=== PATIENT | female | born 1980 | race Caucasian/White ===

== ENCOUNTER 2019-09-16 10:10 | Inpatient (IN) | payer MEDICARE, MEDICAID ==
[~2019-09-16] VITALS: Ht 170.2 cm; Wt 65.3 kg
[2019-09-16] MEDS ORDERED: LORazepam 2 MG/ML VIAL ONE (10:29)
[2019-09-16] MEDS ORDERED: DiphenhydrAMINE HCL 50 MG/ML VIAL ONE (10:30)
[2019-09-16] MEDS ORDERED: HALOPERIDOL LACTATE 5 MG/ML VIAL ONE (10:30)
[2019-09-16] MEDS ORDERED: DiphenhydrAMINE HCL 50 MG/ML VIAL IM ONE (10:30)
[2019-09-16] MEDS ORDERED: LORazepam 2 MG/ML VIAL IM ONE (11:15)
[2019-09-16] MEDS ORDERED: HALOPERIDOL LACTATE 5 MG/ML VIAL IM ONE (11:15)
[2019-09-16 12:17] LABS: BASOPHILS % (AUTO) 0.4 % (0.0-2.0); EOSINOPHILS % (AUTO) 0.7 % (1.0-6.0); HEMATOCRIT 34.1 % (36-46); HEMOGLOBIN 11.6 g/dL (12.0-16.0); LYMPHOCYTES # (AUTO) 1.5 K/uL (1.0-4.8); LYMPHOCYTES % (AUTO) 26.2 % (22.0-44.0); MEAN CORPUSCULAR HEMOGLOBIN 30.9 pg (26.0-34.0); MEAN CORPUSCULAR VOLUME 91 fL (80-100); MONOCYTES # (AUTO) 0.3 K/uL (0.1-1.0); MONOCYTES % (AUTO) 5.6 % (2.0-9.0); NEUTROPHILS % (AUTO) 67.1 % (40.0-70.0); PLATELET COUNT (AUTO) 324 K/uL (150-450); RED BLOOD CELL COUNT(AUTO) 3.76 MIL/uL (4.00-5.20); RED CELL DISTRIBUTION WIDTH 13.8 % (11.5-14.5)
[2019-09-16 12:26] LABS: ANION GAP 4 mmol/L (8-16); CALCIUM, TOTAL 8.2 mg/dL (8.8-10.5); CARBON DIOXIDE 25 mmol/L (22-29); CHLORIDE 108 mmol/L (98-107); CREATININE 0.67 mg/dL (0.60-1.30); GLOMERULAR FILTR. RATE CALC > 60 mL/min (>60); GLUCOSE,RANDOM 81 mg/dL (70-110); SODIUM SERUM 137 mmol/L (136-145); UREA NITROGEN, BLOOD 10 mg/dL (7-18)
[2019-09-16 12:39] LABS: ALANINE AMINOTRANSFERASE 35 U/L (12-78); ALBUMIN 3.2 g/dL (3.4-5.0); ALKALINE PHOSPHATASE 52 U/L (46-116); ASPARTATE AMINOTRANSFERASE 30 U/L (15-37); BILIRUBIN,TOTAL 0.4 mg/dL (0.1-1.0); HCG,QUANTITATIVE < 1 mIU/mL (0-6); TOTAL PROTEIN, SERUM 6.6 g/dL (6.4-8.2)
[2019-09-16] MEDS ORDERED: HALOPERIDOL 5 MG TABLET PO PRN (14:15)
[2019-09-16] MEDS ORDERED: ZOLPIDEM TARTRATE 10 MG TABLET PO PRN (14:15)
[2019-09-16 18:12] VITALS: BP 111/64
[2019-09-16] MEDS ORDERED: POTASSIUM CHLORIDE 20 MEQ ER TABLET PO ONE (19:30)
[2019-09-17 04:43] VITALS: BP 108/60
[2019-09-17] MEDS ORDERED: NICOTINE 14 MG/24 HOUR PATCH TD PRN (08:00)
[2019-09-17] MEDS ORDERED: DOCUSATE SODIUM 100 MG CAPSULE PO PRN (08:00)
[2019-09-17] MEDS ORDERED: PETROLATUM,WHITE 28 GM JELLY TP PRN (08:00)
[2019-09-17] MEDS ORDERED: MAGNESIUM HYDROXIDE SUSPENSION 30 ML UDCUP PO PRN (08:00)
[2019-09-17] MEDS ORDERED: MAG HYDROX/AL HYDROX/SIMETH ES 30 ML SUSPENSION UDCUP PO PRN (08:00)
[2019-09-17] MEDS ORDERED: IBUPROFEN 400 MG TABLET PO PRN (08:00)
[2019-09-17] MEDS ORDERED: ALBUTEROL SULFATE HFA 90 MCG/PUFF 8 GM INHALER IH PRN (08:00)
[2019-09-17] MEDS ORDERED: ONDANSETRON HCL 4 MG TABLET PO PRN (08:00)
[2019-09-17] MEDS ORDERED: CloNIDine HCL 0.1 MG TABLET PO PRN (08:00)
[2019-09-17] MEDS ORDERED: ACETAMINOPHEN 325 MG TABLET PO PRN (08:00)
[2019-09-17] MEDS ORDERED: LOPERAMIDE HCL 2 MG CAPSULE PO PRN (08:00)
[2019-09-17] MEDS ORDERED: GuaiFENesin/D-METHORPHAN [SUGAR-FREE] 200-20MG/10 ML SYRUP UDCUP PO PRN (08:00)
[2019-09-17] MEDS: BACITRACIN 28.4 GM OINTMENT TP SCH ×2 (08:03→16:48)
[2019-09-17] MEDS: OLANZapine 5 MG RAPDIS TABLET PO SCH ×2 (11:38→16:48)
[2019-09-17 16:08] VITALS: BP 110/67
[2019-09-18 00:28] VITALS: BP 107/62
[2019-09-18] MEDS: OLANZapine 5 MG RAPDIS TABLET PO SCH ×2 (08:39→16:56)
[2019-09-18] MEDS: BACITRACIN 28.4 GM OINTMENT TP SCH ×2 (08:39→16:56)
[2019-09-18] MEDS: LORazepam 2 MG TABLET PO PRN (09:52)
[2019-09-18 16:08] VITALS: BP 119/85
[2019-09-19 00:46] VITALS: BP 116/81
[2019-09-19 08:24] VITALS: BP 118/76
[2019-09-19] MEDS: OLANZapine 5 MG RAPDIS TABLET PO SCH ×2 (08:35→16:29)
[2019-09-19] MEDS: BACITRACIN 28.4 GM OINTMENT TP SCH ×2 (08:35→16:29)
[2019-09-19] MEDS: LORazepam 2 MG TABLET PO PRN (08:35)
[2019-09-19 16:19] VITALS: BP 121/78
[2019-09-20 00:43] VITALS: BP 120/76
[2019-09-20] MEDS: OLANZapine 5 MG RAPDIS TABLET PO SCH ×2 (08:40→16:38)
[2019-09-20] MEDS: BACITRACIN 28.4 GM OINTMENT TP SCH ×2 (08:40→16:38)
[2019-09-20] MEDS: LORazepam 2 MG TABLET PO PRN (08:41)
[2019-09-20 16:18] VITALS: BP 110/18
[2019-09-21 03:54] VITALS: BP 114/76
[2019-09-21] MEDS: OLANZapine 5 MG RAPDIS TABLET PO SCH ×2 (08:29→16:13)
[2019-09-21 08:35] VITALS: BP 133/64
[2019-09-21] MEDS: BACITRACIN 28.4 GM OINTMENT TP SCH ×2 (09:46→16:30)
[2019-09-21 16:33] VITALS: BP 122/70
[2019-09-22 01:16] VITALS: BP 122/76
[2019-09-22] MEDS: OLANZapine 5 MG RAPDIS TABLET PO SCH ×2 (08:19→16:33)
[2019-09-22] MEDS: BACITRACIN 28.4 GM OINTMENT TP SCH ×2 (08:20→16:34)
[2019-09-22 08:54] VITALS: BP 141/60
[2019-09-22] MEDS: LORazepam 2 MG TABLET PO PRN (13:17)
[2019-09-22 16:19] VITALS: BP 134/78
[2019-09-23 00:19] VITALS: BP 128/79
[2019-09-23] MEDS: OLANZapine 5 MG RAPDIS TABLET PO SCH ×2 (08:21→16:47)
[2019-09-23 08:40] VITALS: BP 122/74
[2019-09-23] MEDS: BACITRACIN 28.4 GM OINTMENT TP SCH ×2 (09:00→16:47)
[2019-09-23 16:12] VITALS: BP 117/69
[2019-09-24 05:30] VITALS: BP 113/81
[2019-09-24 08:13] VITALS: BP 107/62
[2019-09-24] MEDS: OLANZapine 5 MG RAPDIS TABLET PO SCH ×2 (08:46→16:37)
[2019-09-24] MEDS: BACITRACIN 28.4 GM OINTMENT TP SCH ×2 (08:47→16:37)
[2019-09-24 16:28] VITALS: BP 108/75
[2019-09-24 16:48] VITALS: BP 108/75
[2019-09-25 00:39] VITALS: BP 114/73
[2019-09-25 08:38] VITALS: BP 107/81
[2019-09-25] MEDS: OLANZapine 5 MG RAPDIS TABLET PO SCH ×2 (08:38→16:34)
[2019-09-25] MEDS: BACITRACIN 28.4 GM OINTMENT TP SCH (13:21)
[2019-09-25 16:08] VITALS: BP 106/62
[2019-09-26 01:22] VITALS: BP 108/73
[2019-09-26] MEDS: OLANZapine 5 MG RAPDIS TABLET PO SCH ×2 (08:28→16:59)
[2019-09-26 08:31] VITALS: BP 118/60
[2019-09-26 16:07] VITALS: BP 108/66
[2019-09-27 06:17] VITALS: BP_SYST 99; BP_DIAS 55; BP_DIAS 59
[2019-09-27 08:19] VITALS: BP 103/62
[2019-09-27] MEDS: OLANZapine 5 MG RAPDIS TABLET PO SCH ×2 (08:24→16:37)
[2019-09-27 16:07] VITALS: BP 124/68
[2019-09-28 01:01] VITALS: BP 121/72
[2019-09-28 08:39] VITALS: BP 106/69
[2019-09-28] MEDS: OLANZapine 5 MG RAPDIS TABLET PO SCH ×2 (08:41→16:36)
[2019-09-28 16:34] VITALS: BP 106/76
[2019-09-29 01:00] VITALS: BP 126/76
[2019-09-29] MEDS: OLANZapine 5 MG RAPDIS TABLET PO SCH ×2 (08:10→16:19)
[2019-09-29 08:31] VITALS: BP 101/74
[2019-09-29 16:07] VITALS: BP 116/61
[2019-09-30 04:15] VITALS: BP 110/68
[2019-09-30 08:38] VITALS: BP 103/67
[2019-09-30] MEDS: OLANZapine 5 MG RAPDIS TABLET PO SCH ×2 (09:25→17:09)
[2019-09-30 16:09] VITALS: BP 110/68
[2019-10-01 00:49] VITALS: BP 117/72
[2019-10-01 08:23] VITALS: BP 111/75
[2019-10-01] MEDS: OLANZapine 5 MG RAPDIS TABLET PO SCH ×2 (08:42→16:41)
[2019-10-01 16:17] VITALS: BP 100/64
[2019-10-02 05:53] VITALS: BP 101/68
[2019-10-02] MEDS: OLANZapine 5 MG RAPDIS TABLET PO SCH ×2 (08:17→17:12)
[2019-10-02 08:38] VITALS: BP 109/70
[2019-10-02 16:09] VITALS: BP 114/67
[2019-10-03 00:24] VITALS: BP 112/75
[2019-10-03] MEDS ORDERED: OLAN5TAB2 PO (07:58)
[2019-10-03 08:12] VITALS: BP 102/69
[2019-10-03] MEDS: OLANZapine 5 MG RAPDIS TABLET PO SCH (08:57)
== END 2019-10-03 13:05 | disposition home or self-care (01) | DRG 885 ==
LOC: EMS 10:12 → EDBD 10:12 → B2X 14:13 → UNDOADMIN 16:16 → B2X 16:16 → B3A 16:42 → B2X 09-20 09:10
PROVIDERS: ATTEND Psychiatry & Neurology Child & Adolescent Psychiatry
DX: F20.0 Paranoid schizophrenia (principal); G93.40 Encephalopathy, unspecified; E87.6 Hypokalemia; D64.9 Anemia, unspecified; R51 Headache; F29 Unspecified psychosis not due to a substance or known physiological condition; E83.51 Hypocalcemia; Z59.0 Homelessness
CPT/HCPCS: 70450; 84132; 99291; G0480; J1200; J1630; J2060

== ENCOUNTER 2020-12-19 07:23 | Inpatient (IN) | payer MEDICARE, MEDICAID ==
[~2020-12-19] VITALS: Ht 170.2 cm; Wt 90.9 kg
[~2020-12-19 07:23] MED LIST: FLUO-191 PO; OLAN5TAB52 PO; ZIPR20CA2 PO
[2020-12-19] MEDS ORDERED: LORazepam 2 MG/ML VIAL ONE (08:40)
[2020-12-19] MEDS ORDERED: DiphenhydrAMINE HCL 50 MG/ML VIAL ONE (08:40)
[2020-12-19] MEDS ORDERED: HALOPERIDOL LACTATE 5 MG/ML VIAL ONE (08:41)
[2020-12-19] MEDS ORDERED: LORazepam 2 MG/ML VIAL IM ONE (08:45)
[2020-12-19] MEDS ORDERED: DiphenhydrAMINE HCL 50 MG/ML VIAL IM ONE (08:45)
[2020-12-19] MEDS ORDERED: HALOPERIDOL LACTATE 5 MG/ML VIAL IM ONE (08:45)
[2020-12-19 09:06] LABS: BASOPHILS % (AUTO) 0.8 % (0.0-2.0); EOSINOPHILS % (AUTO) 0.8 % (1.0-6.0); HEMATOCRIT 34.8 % (36-46); HEMOGLOBIN 11.4 g/dL (12.0-16.0); LYMPHOCYTES # (AUTO) 2.5 K/uL (1.0-4.8); LYMPHOCYTES % (AUTO) 27.4 % (22.0-44.0); MEAN CORPUSCULAR HEMOGLOBIN 28.6 pg (26.0-34.0); MEAN CORPUSCULAR HGB CONC 32.7 G/dL (31.0-37.0); MEAN CORPUSCULAR VOLUME 87 fL (80-100); MONOCYTES # (AUTO) 0.8 K/uL (0.1-1.0); MONOCYTES % (AUTO) 8.3 % (2.0-9.0); NEUTROPHILS # (AUTO) 5.8 K/uL (1.8-7.7); NEUTROPHILS % (AUTO) 62.7 % (40.0-70.0); PLATELET COUNT (AUTO) 406 K/uL (150-450); RED BLOOD CELL COUNT(AUTO) 3.99 MIL/uL (4.00-5.20)
[2020-12-19 09:13] LABS: ANION GAP 16 mmol/L (8-16); CALCIUM, TOTAL 8.4 mg/dL (8.8-10.5); CARBON DIOXIDE 22 mmol/L (22-29); CHLORIDE 107 mmol/L (98-107); CREATININE 0.71 mg/dL (0.60-1.30); GLOMERULAR FILTR. RATE CALC > 60 mL/min (>60); GLUCOSE,RANDOM 96 mg/dL (70-110); POTASSIUM 3.1 mmol/L (3.5-5.1); SODIUM SERUM 145 mmol/L (136-145); UREA NITROGEN, BLOOD 9 mg/dL (7-18)
[2020-12-19 09:19] LABS: ALANINE AMINOTRANSFERASE 31 U/L (12-78); ALBUMIN 3.5 g/dL (3.4-5.0); ALKALINE PHOSPHATASE 66 U/L (46-116); ASPARTATE AMINOTRANSFERASE 38 U/L (15-37); BILIRUBIN,TOTAL 0.3 mg/dL (0.1-1.0); TOTAL PROTEIN, SERUM 7.1 g/dL (6.4-8.2)
[2020-12-19] MEDS ORDERED: LORazepam 2 MG TABLET PO PRN (09:45)
[2020-12-19] MEDS ORDERED: ZOLPIDEM TARTRATE 10 MG TABLET PO PRN (09:45)
[2020-12-19] MEDS ORDERED: HALOPERIDOL 5 MG TABLET PO PRN (09:45)
[2020-12-19 13:18] LABS: COVID AG,FIA SOURCE NASOPHARYNGEAL
[2020-12-19 20:47] VITALS: BP 144/71
[2020-12-19] MEDS ORDERED: INFLUENZA VIRUS VACCINE QVS 2021-22 (6MO+)/PF 60 MCG/0.5 ML SYRINGE IM. ONE (21:45)
[2020-12-20 00:12] VITALS: BP 115/77
[2020-12-20 08:14] VITALS: BP 126/90
[2020-12-20 08:52] LABS: CHOL/HDL RATIO 2.6 (3.9-5.7)
[2020-12-20] MEDS ORDERED: DOCUSATE SODIUM 100 MG CAPSULE PO PRN (09:30)
[2020-12-20] MEDS ORDERED: GuaiFENesin/D-METHORPHAN [SUGAR-FREE] 200-20MG/10 ML SYRUP UDCUP PO PRN (09:30)
[2020-12-20] MEDS ORDERED: CloNIDine HCL 0.1 MG TABLET PO PRN (09:30)
[2020-12-20] MEDS ORDERED: LOPERAMIDE HCL 2 MG CAPSULE PO PRN (09:30)
[2020-12-20] MEDS ORDERED: PETROLATUM,WHITE 28 GM JELLY TP PRN (09:30)
[2020-12-20] MEDS ORDERED: MAG HYDROX/AL HYDROX/SIMETH ES 30 ML SUSPENSION UDCUP PO PRN (09:30)
[2020-12-20] MEDS ORDERED: ONDANSETRON HCL 4 MG TABLET PO PRN (09:30)
[2020-12-20] MEDS ORDERED: ALBUTEROL SULFATE HFA 90 MCG/PUFF 8 GM INHALER IH PRN (09:30)
[2020-12-20] MEDS ORDERED: ACETAMINOPHEN 325 MG TABLET PO PRN (09:30)
[2020-12-20] MEDS ORDERED: MAGNESIUM HYDROXIDE SUSPENSION 30 ML UDCUP PO PRN (09:30)
[2020-12-20] MEDS ORDERED: NICOTINE 14 MG/24 HOUR PATCH TD PRN (09:30)
[2020-12-20] MEDS ORDERED: IBUPROFEN 400 MG TABLET PO PRN (09:30)
[2020-12-20] MEDS ORDERED: POTASSIUM CHLORIDE 20 MEQ ER TABLET PO ONE (13:00)
[2020-12-20 16:05] VITALS: BP 121/72
[2020-12-21 00:07] VITALS: BP 118/66
[2020-12-21 07:41] LABS: MAGNESIUM 1.8 mg/dL (1.80-2.40); POTASSIUM 3.8 mmol/L (3.5-5.1)
[2020-12-21 08:26] VITALS: BP 125/89
[2020-12-21] MEDS: OLANZapine 5 MG TABLET PO SCH ×2 (08:32→16:59)
[2020-12-21] MEDS: FLUoxetine HCL 20 MG CAPSULE PO SCH (08:32)
[2020-12-21 16:06] VITALS: BP 112/71
[2020-12-21] MEDS: ZIPRASIDONE HCL 20 MG CAPSULE PO SCH (16:59)
[2020-12-22 00:10] VITALS: BP 121/69
[2020-12-22] MEDS: ZIPRASIDONE HCL 20 MG CAPSULE PO SCH ×2 (06:48→17:14)
[2020-12-22 08:15] VITALS: BP 122/80
[2020-12-22] MEDS: FLUoxetine HCL 20 MG CAPSULE PO SCH (08:16)
[2020-12-22] MEDS: OLANZapine 5 MG TABLET PO SCH (08:16)
[2020-12-22 16:00] VITALS: BP 130/80
[2020-12-22] MEDS: OLANZapine 10 MG TABLET PO SCH (17:14)
[2020-12-23 00:21] VITALS: BP 113/88
[2020-12-23] MEDS: ZIPRASIDONE HCL 20 MG CAPSULE PO SCH ×2 (06:51→17:05)
[2020-12-23 08:16] VITALS: BP 113/71
[2020-12-23] MEDS: OLANZapine 10 MG TABLET PO SCH ×2 (08:33→17:05)
[2020-12-23] MEDS: FLUoxetine HCL 20 MG CAPSULE PO SCH (08:33)
[2020-12-23 09:51] LABS: AMPHET/METH SCREEN,URINE NEGATIVE (NEGATIVE); BARBITURATE SCREEN, URINE NEGATIVE (NEGATIVE); BENZODIAZEPINES SCREEN,URINE NEGATIVE (NEGATIVE); CANNABINOID SCREEN,URINE NEGATIVE (NEGATIVE); COCAINE SCREEN,URINE NEGATIVE (NEGATIVE); METHADONE SCREEN, URINE NEGATIVE (NEGATIVE); PHENCYCLIDINE SCREEN,URINE NEGATIVE (NEGATIVE)
[2020-12-23 09:52] LABS: OPIATE SCREEN,URINE NEGATIVE (NEGATIVE)
[2020-12-23 16:13] VITALS: BP 122/84
[2020-12-24 05:32] VITALS: BP 115/70
[2020-12-24] MEDS: ZIPRASIDONE HCL 20 MG CAPSULE PO SCH (07:00)
[2020-12-24 07:44] LABS: COVID AG,FIA SOURCE NASOPHARYNGEAL
[2020-12-24 08:13] VITALS: BP 142/80
[2020-12-24] MEDS: OLANZapine 10 MG TABLET PO SCH (08:34)
[2020-12-24] MEDS: FLUoxetine HCL 20 MG CAPSULE PO SCH (08:34)
[2020-12-24] MEDS ORDERED: OLAN10TA74 PO (11:11)
== END 2020-12-24 13:09 | disposition home or self-care (01) | DRG 885 ==
LOC: EMS 07:25 → B2X 16:37
PROVIDERS: ADMIT Psychiatry & Neurology Child & Adolescent Psychiatry; ATTEND Psychiatry & Neurology Child & Adolescent Psychiatry
DX: F20.0 Paranoid schizophrenia (principal); E87.6 Hypokalemia; E83.51 Hypocalcemia; D64.9 Anemia, unspecified; R74.01 Elevation of levels of liver transaminase levels; Z20.822 Contact with and (suspected) exposure to COVID-19
CPT/HCPCS: 80053; 80061; 80307; 83735; 84132; 85025; 99285; G0480; J1200; J1630; J2060

== ENCOUNTER 2022-08-19 08:19 | Inpatient (IN) | payer MEDICARE, MEDICAID ==
[~2022-08-19] VITALS: Ht 170.2 cm; Wt 72.4 kg
[~2022-08-19 08:19] MED LIST changes: +FLUO-177 PO; -FLUO-191 PO; +OLAN10TA74 PO; -OLAN5TAB52 PO; -ZIPR20CA2 PO; +ZIPR20CA38 PO
[2022-08-19 08:55] LABS: EOSINOPHILS % (AUTO) 1.2 % (1.0-6.0); HEMATOCRIT 38.7 % (36-46); HEMOGLOBIN 12.8 g/dL (12.0-16.0); LYMPHOCYTES # (AUTO) 1.3 K/uL (1.0-4.8); LYMPHOCYTES % (AUTO) 16.7 % (22.0-44.0); MEAN CORPUSCULAR HEMOGLOBIN 30.2 pg (26.0-34.0); MEAN CORPUSCULAR VOLUME 92 fL (80-100); MONOCYTES # (AUTO) 0.5 K/uL (0.1-1.0); MONOCYTES % (AUTO) 6.6 % (2.0-9.0); NEUTROPHILS # (AUTO) 5.9 K/uL (1.8-7.7); NEUTROPHILS % (AUTO) 74.5 % (40.0-70.0); PLATELET COUNT (AUTO) 290 K/uL (150-450); RED BLOOD CELL COUNT(AUTO) 4.23 MIL/uL (4.00-5.20); RED CELL DISTRIBUTION WIDTH 13.6 % (11.5-14.5)
[2022-08-19 09:16] LABS: ALANINE AMINOTRANSFERASE 38 U/L (12-78); ALBUMIN 3.2 g/dL (3.4-5.0); ALKALINE PHOSPHATASE 61 U/L (46-116); ANION GAP 10 mmol/L (8-16); ASPARTATE AMINOTRANSFERASE 45 U/L (15-37); BILIRUBIN,TOTAL 0.5 mg/dL (0.1-1.0); CALCIUM, TOTAL 8.6 mg/dL (8.8-10.5); CARBON DIOXIDE 25 mmol/L (22-29); CHLORIDE 108 mmol/L (98-107); CREATININE 0.72 mg/dL (0.60-1.30); GLOMERULAR FILTR. RATE CALC > 60 mL/min (>60); GLUCOSE,RANDOM 90 mg/dL (70-110); SODIUM SERUM 142 mmol/L (136-145); TOTAL PROTEIN, SERUM 6.9 g/dL (6.4-8.2)
[2022-08-19] MEDS ORDERED: LORazepam 2 MG/ML VIAL IM ONE (09:45)
[2022-08-19] MEDS ORDERED: POTASSIUM CHLORIDE 20 MEQ ER TABLET PO ONE (09:45)
[2022-08-19] MEDS ORDERED: DiphenhydrAMINE HCL 50 MG/ML VIAL IM ONE (09:45)
[2022-08-19] MEDS ORDERED: HALOPERIDOL LACTATE 5 MG/ML VIAL IM ONE (09:45)
[2022-08-19 10:52] LABS: COVID AG,FIA SOURCE NASOPHARYNGEAL
[2022-08-19] MEDS ORDERED: HALOPERIDOL 5 MG TABLET PO PRN (12:00)
[2022-08-19] MEDS ORDERED: LOPERAMIDE HCL 2 MG CAPSULE PO PRN (14:45)
[2022-08-19] MEDS ORDERED: GuaiFENesin/D-METHORPHAN [SUGAR-FREE] 200-20MG/10 ML SYRUP UDCUP PO PRN (14:45)
[2022-08-19] MEDS ORDERED: ALBUTEROL SULFATE HFA 90 MCG/PUFF 8 GM INHALER IH PRN (14:45)
[2022-08-19] MEDS ORDERED: IBUPROFEN 400 MG TABLET PO PRN (14:45)
[2022-08-19] MEDS ORDERED: DOCUSATE SODIUM 100 MG CAPSULE PO PRN (14:45)
[2022-08-19] MEDS ORDERED: NICOTINE 14 MG/24 HOUR PATCH TD PRN (14:45)
[2022-08-19] MEDS ORDERED: ONDANSETRON HCL 4 MG TABLET PO PRN (14:45)
[2022-08-19] MEDS ORDERED: MAGNESIUM HYDROXIDE SUSPENSION 30 ML UDCUP PO PRN (14:45)
[2022-08-19] MEDS ORDERED: MAG HYDROX/AL HYDROX/SIMETH ES 30 ML SUSPENSION UDCUP PO PRN (14:45)
[2022-08-19] MEDS ORDERED: CloNIDine HCL 0.1 MG TABLET PO PRN (14:45)
[2022-08-19] MEDS ORDERED: ACETAMINOPHEN 325 MG TABLET PO PRN (14:45)
[2022-08-19] MEDS ORDERED: PETROLATUM,WHITE 28 GM JELLY TP PRN (14:45)
[2022-08-19 15:45] VITALS: BP 125/78; PULSE 87; RESP 17; TEMP 97.9; O2SAT 97
[2022-08-19 21:17] VITALS: BP 119/75; PULSE 85; RESP 18; TEMP 98.1; O2SAT 96
[2022-08-20 08:17] LABS: HEMOGLOBIN A1C 5.2 % (3.8-5.6)
[2022-08-20 08:38] LABS: CHOL/HDL RATIO 2.4 (3.9-5.7); THYROID STIMULATING HORMONE 2.23 uIU/mL (0.36-3.74)
[2022-08-20 08:41] VITALS: BP 126/82; PULSE 92; RESP 17; TEMP 97.6; O2SAT 99
[2022-08-20] MEDS ORDERED: HALOPERIDOL LACTATE 5 MG/ML VIAL ONE (10:54)
[2022-08-20] MEDS ORDERED: LORazepam 2 MG/ML VIAL ONE (10:54)
[2022-08-20] MEDS ORDERED: DiphenhydrAMINE HCL 50 MG/ML VIAL ONE (10:55)
[2022-08-20] MEDS ORDERED: DiphenhydrAMINE HCL 50 MG/ML VIAL IM ONE (11:00)
[2022-08-20] MEDS ORDERED: LORazepam 2 MG/ML VIAL IM ONE (11:00)
[2022-08-20] MEDS ORDERED: HALOPERIDOL LACTATE 5 MG/ML VIAL IM ONE (11:00)
[2022-08-20] MEDS ORDERED: POTASSIUM CHLORIDE 10% 40 MEQ/30 ML LIQUID UDCUP PO ONE (14:00)
[2022-08-20] MEDS: FLUoxetine HCL 20 MG CAPSULE PO SCH (14:33)
[2022-08-20] MEDS: OLANZapine 10 MG TABLET PO SCH (16:08)
[2022-08-20 20:25] VITALS: BP 128/90; PULSE 78; RESP 18; TEMP 98.2; O2SAT 98
[2022-08-21 08:27] VITALS: RESP 16
[2022-08-21] MEDS: FLUoxetine HCL 20 MG CAPSULE PO SCH (08:32)
[2022-08-21] MEDS: OLANZapine 10 MG TABLET PO SCH ×2 (08:32→16:18)
[2022-08-21 20:00] VITALS: TEMP 98; O2SAT 96
[2022-08-22] MEDS: OLANZapine 10 MG TABLET PO SCH ×2 (08:33→16:13)
[2022-08-22] MEDS: FLUoxetine HCL 20 MG CAPSULE PO SCH (08:33)
[2022-08-22 08:43] VITALS: RESP 18
[2022-08-23] MEDS: FLUoxetine HCL 20 MG CAPSULE PO SCH (08:12)
[2022-08-23] MEDS: OLANZapine 10 MG TABLET PO SCH ×2 (08:12→17:01)
[2022-08-23 08:31] VITALS: BP 133/92; PULSE 99; RESP 16; TEMP 98; O2SAT 97
[2022-08-23] MEDS ORDERED: LORazepam 2 MG/ML VIAL IM ONE (11:15)
[2022-08-23] MEDS ORDERED: DiphenhydrAMINE HCL 50 MG/ML VIAL IM ONE (11:15)
[2022-08-23] MEDS ORDERED: HALOPERIDOL LACTATE 5 MG/ML VIAL IM ONE (11:15)
[2022-08-24 08:16] VITALS: RESP 17
[2022-08-24] MEDS: OLANZapine 10 MG TABLET PO SCH ×2 (08:49→16:55)
[2022-08-24] MEDS: FLUoxetine HCL 20 MG CAPSULE PO SCH (08:49)
[2022-08-24] MEDS: LORazepam 2 MG TABLET PO PRN (16:55)
[2022-08-24 20:02] VITALS: RESP 18
[2022-08-24 20:10] VITALS: BP 108/70; PULSE 91; RESP 19; TEMP 98.1; O2SAT 97
[2022-08-25] MEDS: FLUoxetine HCL 20 MG CAPSULE PO SCH (08:07)
[2022-08-25] MEDS: OLANZapine 10 MG TABLET PO SCH ×2 (08:07→16:42)
[2022-08-25 08:31] VITALS: BP 118/78; PULSE 85; RESP 18; TEMP 98; O2SAT 97
[2022-08-25] MEDS: LORazepam 2 MG TABLET PO PRN (16:43)
[2022-08-25] MEDS ORDERED: BACITRACIN 28 GM OINTMENT TP PRN (19:45)
[2022-08-25] MEDS: ZOLPIDEM TARTRATE 10 MG TABLET PO PRN (20:29)
[2022-08-25 20:53] VITALS: BP 128/91; PULSE 100; RESP 17; TEMP 98; O2SAT 98
[2022-08-26 08:13] VITALS: BP 111/79; PULSE 86; RESP 18; TEMP 97.9; O2SAT 97
[2022-08-26] MEDS: FLUoxetine HCL 20 MG CAPSULE PO SCH (08:20)
[2022-08-26] MEDS: OLANZapine 10 MG TABLET PO SCH ×2 (08:20→17:26)
[2022-08-26] MEDS: LORazepam 2 MG TABLET PO PRN ×2 (08:20→22:25)
[2022-08-27 01:04] VITALS: RESP 18
[2022-08-27] MEDS: FLUoxetine HCL 20 MG CAPSULE PO SCH (08:12)
[2022-08-27] MEDS: OLANZapine 10 MG TABLET PO SCH ×2 (08:12→17:08)
[2022-08-27 08:13] VITALS: RESP 16
[2022-08-27] MEDS: LORazepam 2 MG TABLET PO PRN (17:08)
[2022-08-27 20:16] VITALS: BP 108/70; PULSE 84; RESP 18; TEMP 97.7; O2SAT 99
[2022-08-28] MEDS: FLUoxetine HCL 20 MG CAPSULE PO SCH (08:03)
[2022-08-28] MEDS: OLANZapine 10 MG TABLET PO SCH ×2 (08:03→16:02)
[2022-08-28 08:10] VITALS: BP 114/69; PULSE 79; RESP 17; TEMP 97.5; O2SAT 98
[2022-08-28 17:58] VITALS: RESP 18
[2022-08-28 18:58] VITALS: RESP 18
[2022-08-28 20:00] VITALS: BP 118/64; PULSE 75; RESP 18; TEMP 97.3; O2SAT 98
[2022-08-28] MEDS: ZOLPIDEM TARTRATE 10 MG TABLET PO PRN (20:52)
[2022-08-29] MEDS: OLANZapine 10 MG TABLET PO SCH ×2 (08:17→16:23)
[2022-08-29] MEDS: FLUoxetine HCL 20 MG CAPSULE PO SCH (08:17)
[2022-08-29 08:48] VITALS: BP 121/73; PULSE 72; RESP 18; TEMP 97.6; O2SAT 98
[2022-08-29] MEDS: LORazepam 2 MG TABLET PO PRN (16:23)
[2022-08-29 20:03] VITALS: BP 111/72; PULSE 98; RESP 18; TEMP 97.6; O2SAT 98
[2022-08-29] MEDS: ZOLPIDEM TARTRATE 10 MG TABLET PO PRN (22:41)
[2022-08-30] MEDS: OLANZapine 10 MG TABLET PO SCH ×2 (08:11→16:36)
[2022-08-30] MEDS: FLUoxetine HCL 20 MG CAPSULE PO SCH (08:11)
[2022-08-30 09:00] VITALS: BP 120/75; PULSE 86; RESP 19; TEMP 98.3; O2SAT 98
[2022-08-30] MEDS: LORazepam 2 MG TABLET PO PRN (14:14)
[2022-08-30 21:05] VITALS: BP 118/73; PULSE 86; RESP 18; TEMP 98.1; O2SAT 98
[2022-08-31 08:20] VITALS: RESP 18
[2022-08-31] MEDS: FLUoxetine HCL 20 MG CAPSULE PO SCH (09:31)
[2022-08-31] MEDS: OLANZapine 10 MG TABLET PO SCH ×2 (09:31→16:28)
[2022-08-31 13:00] VITALS: BP 145/88; PULSE 70; RESP 18; TEMP 98.9; O2SAT 98
[2022-08-31 21:20] VITALS: BP 128/65; PULSE 68; RESP 16; TEMP 97.8; O2SAT 96
[2022-09-01 08:07] VITALS: BP 106/62; PULSE 72; RESP 18; TEMP 97.5; O2SAT 97
[2022-09-01] MEDS: FLUoxetine HCL 20 MG CAPSULE PO SCH (08:14)
[2022-09-01] MEDS: OLANZapine 10 MG TABLET PO SCH ×2 (08:14→16:36)
[2022-09-01 20:10] VITALS: BP 128/93; PULSE 103; RESP 17; TEMP 97.7; O2SAT 98
[2022-09-02 08:30] VITALS: RESP 17; TEMP 98.6
[2022-09-02] MEDS: FLUoxetine HCL 20 MG CAPSULE PO SCH (08:51)
[2022-09-02] MEDS: OLANZapine 10 MG TABLET PO SCH ×2 (08:51→16:35)
[2022-09-02 20:03] VITALS: BP 113/85; PULSE 78; RESP 18; TEMP 97.5; O2SAT 97
[2022-09-03 08:03] VITALS: BP 119/67; PULSE 77; RESP 16; TEMP 98.4; O2SAT 98
[2022-09-03] MEDS: OLANZapine 10 MG TABLET PO SCH ×2 (08:43→16:46)
[2022-09-03] MEDS: FLUoxetine HCL 20 MG CAPSULE PO SCH (08:43)
[2022-09-03 20:06] VITALS: BP 116/75; PULSE 74; RESP 20; TEMP 98.5; O2SAT 97
[2022-09-04 08:04] VITALS: BP 132/75; PULSE 82; RESP 16; TEMP 97.8; O2SAT 97
[2022-09-04] MEDS: FLUoxetine HCL 20 MG CAPSULE PO SCH (08:20)
[2022-09-04] MEDS: OLANZapine 10 MG TABLET PO SCH ×2 (08:20→16:20)
[2022-09-04 20:18] VITALS: BP 110/69; PULSE 100; RESP 18; TEMP 97.9; O2SAT 99
[2022-09-05 08:21] VITALS: BP 108/64; PULSE 66; RESP 17; TEMP 97.7; O2SAT 97
[2022-09-05] MEDS: OLANZapine 10 MG TABLET PO SCH ×2 (08:32→16:27)
[2022-09-05] MEDS: FLUoxetine HCL 20 MG CAPSULE PO SCH (08:32)
[2022-09-05 21:27] VITALS: BP 106/71; PULSE 76; RESP 18; TEMP 98.4; O2SAT 97
[2022-09-06] MEDS: FLUoxetine HCL 20 MG CAPSULE PO SCH (08:07)
[2022-09-06] MEDS: OLANZapine 10 MG TABLET PO SCH ×2 (08:07→16:30)
[2022-09-06 08:26] VITALS: BP 102/62; PULSE 88; RESP 18; TEMP 97.9; O2SAT 97
[2022-09-06 20:17] VITALS: BP 106/78; PULSE 80; RESP 17; TEMP 97.8; O2SAT 97
[2022-09-07] MEDS: FLUoxetine HCL 20 MG CAPSULE PO SCH (08:26)
[2022-09-07] MEDS: OLANZapine 10 MG TABLET PO SCH ×2 (08:26→16:28)
[2022-09-07 08:29] VITALS: BP 109/68; PULSE 97; RESP 17; TEMP 98.1; O2SAT 97
[2022-09-07 20:36] VITALS: BP 111/69; PULSE 79; RESP 18; TEMP 98.3; O2SAT 96
[2022-09-08 08:32] VITALS: BP 108/76; PULSE 96; RESP 19; TEMP 98; O2SAT 97
[2022-09-08] MEDS: OLANZapine 10 MG TABLET PO SCH (08:38)
[2022-09-08] MEDS: FLUoxetine HCL 20 MG CAPSULE PO SCH (08:38)
[2022-09-08] MEDS ORDERED: OLAN10TA74 PO (10:52)
[2022-09-08] MEDS ORDERED: FLUO20CA36 PO (10:52)
== END 2022-09-08 10:00 | disposition left against medical advice (07) | DRG 885 ==
LOC: EMS 08:34 → B3A 12:28 → B2X 08-29 09:48
PROVIDERS: ADMIT Psychiatry & Neurology Child & Adolescent Psychiatry; ATTEND Psychiatry & Neurology Child & Adolescent Psychiatry
DX: F20.0 Paranoid schizophrenia (principal); E87.6 Hypokalemia; Z53.21 Procedure and treatment not carried out due to patient leaving prior to being seen by health care provider; Z20.822 Contact with and (suspected) exposure to COVID-19; R74.01 Elevation of levels of liver transaminase levels; G47.00 Insomnia, unspecified; F19.10 Other psychoactive substance abuse, uncomplicated; F41.9 Anxiety disorder, unspecified; Z79.899 Other long term (current) drug therapy
CPT/HCPCS: 80053; 80061; 83036; 84132; 84443; 84703; 85025; 99285; G0480; J1200; J1630; J2060

== ENCOUNTER 2023-12-14 15:43 | Inpatient (IN) | payer MEDICARE, MEDICAID ==
[~2023-12-14] VITALS: Ht 167.6 cm; Wt 109.0 kg
[2023-12-14] MEDS ORDERED: HALOPERIDOL 5 MG TABLET PO PRN (17:45)
[2023-12-14] MEDS ORDERED: LORazepam 2 MG TABLET PO PRN (17:45)
[2023-12-15 02:40] VITALS: BP 104/70; PULSE 74; RESP 16; TEMP 96.9; O2SAT 94
[2023-12-15 08:09] VITALS: BP 121/79; PULSE 86; RESP 16; TEMP 97.9; O2SAT 98
[2023-12-15] MEDS ORDERED: BENZOCAINE/MENTHOL LOZENGE PO PRN (08:30)
[2023-12-15] MEDS ORDERED: MAGNESIUM HYDROXIDE SUSPENSION 30 ML UDCUP PO PRN (08:30)
[2023-12-15] MEDS ORDERED: DOCUSATE SODIUM 100 MG CAPSULE PO PRN (08:30)
[2023-12-15] MEDS ORDERED: PETROLATUM,WHITE 28 GM JELLY TP PRN (08:30)
[2023-12-15] MEDS ORDERED: OMEPRAZOLE 20 MG CAPSULE PO PRN (08:30)
[2023-12-15] MEDS ORDERED: MAG HYDROX/ALUMINUM HYD/SIMETH ES 30 ML SUSPENSION UDCUP PO PRN (08:30)
[2023-12-15] MEDS ORDERED: CloNIDine HCL 0.1 MG TABLET PO PRN (08:30)
[2023-12-15] MEDS ORDERED: ALBUTEROL SULFATE HFA 90 MCG/PUFF 8 GM INHALER IH PRN (08:30)
[2023-12-15] MEDS ORDERED: ONDANSETRON 4 MG TABLET PO PRN (08:30)
[2023-12-15] MEDS ORDERED: LOPERAMIDE HCL 2 MG CAPSULE PO PRN (08:30)
[2023-12-15] MEDS ORDERED: IBUPROFEN 600 MG TABLET PO PRN (08:30)
[2023-12-15 08:52] LABS: BASOPHILS % (AUTO) 1.2 % (0.0-2.0); EOSINOPHILS % (AUTO) 2.2 % (1.0-6.0); HEMATOCRIT 39.5 % (36-46); LYMPHOCYTES # (AUTO) 2.9 K/uL (1.0-4.8); LYMPHOCYTES % (AUTO) 27.1 % (22.0-44.0); MEAN CORPUSCULAR HEMOGLOBIN 30.6 pg (26.0-34.0); MEAN CORPUSCULAR HGB CONC 32.9 G/dL (31.0-37.0); MEAN CORPUSCULAR VOLUME 93 fL (80-100); MONOCYTES # (AUTO) 0.5 K/uL (0.1-1.0); NEUTROPHILS # (AUTO) 6.9 K/uL (1.8-7.7); NEUTROPHILS % (AUTO) 64.5 % (40.0-70.0); PLATELET COUNT (AUTO) 378 K/uL (150-450); RED BLOOD CELL COUNT(AUTO) 4.25 MIL/uL (4.00-5.20); RED CELL DISTRIBUTION WIDTH 13.8 % (11.5-14.5); WHITE BLOOD COUNT (AUTO) 10.7 K/uL (4.5-11.0)
[2023-12-15 09:02] LABS: HEMOGLOBIN A1C 5.2 % (3.8-5.6)
[2023-12-15 09:04] LABS: ALANINE AMINOTRANSFERASE 29 U/L (12-78); ALBUMIN 3.2 g/dL (3.4-5.0); ALKALINE PHOSPHATASE 73 U/L (46-116); ANION GAP 9 mmol/L (8-16); ASPARTATE AMINOTRANSFERASE 23 U/L (15-37); BILIRUBIN,TOTAL 0.2 mg/dL (0.1-1.0); CALCIUM, TOTAL 8.4 mg/dL (8.8-10.5); CARBON DIOXIDE 24 mmol/L (22-29); CHLORIDE 105 mmol/L (98-107); CHOLESTEROL 145 mg/dL (131-200); CREATININE 0.72 mg/dL (0.60-1.30); FREE T4 (FREE THYROXINE) 0.92 ng/dL (0.76-1.46); GLOMERULAR FILTR. RATE CALC > 60 mL/min (>60); GLUCOSE,RANDOM 117 mg/dL (70-110); HDL CHOLESTEROL 49 mg/dL (40-60); LDL CHOL (CALC.) 77 mg/dL (0-130); POTASSIUM 3.7 mmol/L (3.5-5.1); SODIUM SERUM 138 mmol/L (136-145); T4 (THYROXINE) 7.7 mcg/dL (4.7-13.3); THYROID STIMULATING HORMONE 4.13 uIU/mL (0.36-3.74); TOTAL PROTEIN, SERUM 6.8 g/dL (6.4-8.2); TRIGLYCERIDES 95 mg/dL (15-150); UREA NITROGEN, BLOOD 14 mg/dL (7-18)
[2023-12-15] MEDS ORDERED: INFLUENZA VIRUS VACCINE TVS (6MO+) 2024-25/PF 45 MCG/0.5 ML SYRINGE IM. ONE (09:30)
[2023-12-15 09:39] LABS: HCG,QUANTITATIVE < 1 mIU/mL (0-6)
[2023-12-15 14:46] LABS: GLUCOMETER DEV NAME(LOC) POC.BV; POC SARS-COV2 AG, FIA NEGATIVE (NEGATIVE)
[2023-12-15 20:00] VITALS: BP 105/60; PULSE 73; RESP 17; TEMP 97.1; O2SAT 96
[2023-12-15 20:04] VITALS: BP 105/60; PULSE 73; RESP 17; TEMP 97.1; O2SAT 96
[2023-12-16 08:09] VITALS: BP 123/87; PULSE 92; RESP 16; TEMP 97.9; O2SAT 97
[2023-12-16 09:26] LABS: APPEARANCE,URINE HAZY (CLEAR); BILIRUBIN,URINE NEGATIVE (NEGATIVE); COLOR,URINE YELLOW (YELLOW); GLUCOSE, URINE (UA) NEGATIVE (NEGATIVE); KETONES,URINE NEGATIVE (NEGATIVE); LEUKOCYTE ESTERASE ,URINE TRACE (NEGATIVE); NITRATE,URINE NEGATIVE (NEGATIVE); OCCULT BLOOD,URINE NEGATIVE (NEGATIVE); PH,URINE 6.5 (5.0-8.0); PH,URINE DRUG SCREEN 6.5 (5.0-8.0); PROTEIN,URINE TRACE mg/dL (NEGATIVE); SPECIFIC GRAVITIY, URINE 1.031 (1.003-1.030); UROBILINOGEN,URINE <=1.0 mg/dL (<=1.0)
[2023-12-16 09:32] LABS: ALCOHOL, URINE DRUG SCREEN NEGATIVE (NEGATIVE); AMPHET/METH SCREEN,URINE NEGATIVE (NEGATIVE); BARBITURATE SCREEN, URINE NEGATIVE (NEGATIVE); BENZODIAZEPINES SCREEN,URINE NEGATIVE (NEGATIVE); CANNABINOID SCREEN,URINE NEGATIVE (NEGATIVE); COCAINE SCREEN,URINE NEGATIVE (NEGATIVE); METHADONE SCREEN, URINE NEGATIVE (NEGATIVE); OPIATE SCREEN,URINE NEGATIVE (NEGATIVE); PHENCYCLIDINE SCREEN,URINE NEGATIVE (NEGATIVE)
[2023-12-16 09:46] LABS: BACTERIA,URINE Moderate /HPF (None Seen); CALCIUM OXALATE CRYSTALS,UR Many /LPF (None Seen); RBC,URINE 0-2 /HPF (0-2); SQUAMOUS EPITHELIAL CELL,UR Many /LPF (None Seen); WBC,URINE 0-2 /HPF (0-5)
[2023-12-16 14:15] VITALS: RESP 16
[2023-12-16] MEDS: ACETAMINOPHEN 325 MG TABLET PO PRN (14:15)
[2023-12-16 15:15] VITALS: RESP 16
[2023-12-16] MEDS: OLANZapine 5 MG TABLET PO SCH (20:09)
[2023-12-16] MEDS: ZOLPIDEM TARTRATE 10 MG TABLET PO PRN (20:12)
[2023-12-16 20:27] VITALS: BP 114/67; PULSE 71; RESP 16; TEMP 98.1
[2023-12-17] MEDS: FLUoxetine HCL 20 MG CAPSULE PO SCH (08:06)
[2023-12-17 08:43] VITALS: BP 128/82; PULSE 82; RESP 16; TEMP 97.2
[2023-12-17] MEDS: NITROFURANTOIN MONOHYD/M-CRYST 100 MG CAPSULE [MACROBID] PO SCH (10:39)
[2023-12-17 21:44] VITALS: BP 108/69; PULSE 90; RESP 16; TEMP 98
[2023-12-18] MEDS ORDERED: PNEUMOCOCCAL VACCINE POLYVALENT 0.5 ML SYRINGE [PPSV23] IM. ONE (06:15)
[2023-12-18 08:06] VITALS: BP 117/80; PULSE 80; RESP 17; TEMP 97.2; O2SAT 96
[2023-12-18 21:12] VITALS: BP 119/59; PULSE 74; RESP 18; TEMP 97.8
[2023-12-19] MEDS: BACITRACIN 28 GM OINTMENT TP PRN (08:43)
[2023-12-19 09:11] VITALS: BP 106/64; PULSE 84; RESP 18; TEMP 97.4
[2023-12-19] MEDS ORDERED: INFLUENZA VIRUS VACCINE TVS (6MO+) 2024-25/PF 45 MCG/0.5 ML SYRINGE IM. ONE (10:45)
[2023-12-19] MEDS: LORazepam 2 MG/ML VIAL IM ONE (13:15)
[2023-12-19] MEDS: DiphenhydrAMINE HCL 50 MG/ML VIAL IM ONE (13:16)
[2023-12-19] MEDS: HALOPERIDOL LACTATE 5 MG/ML VIAL IM ONE (13:16)
[2023-12-19 22:19] VITALS: RESP 18
[2023-12-20 08:07] VITALS: BP 128/80; PULSE 92; RESP 18; TEMP 98.4; O2SAT 97
[2023-12-20 20:08] VITALS: BP 121/82; PULSE 86; RESP 18; TEMP 98; O2SAT 97
[2023-12-21 08:08] VITALS: BP 145/79; PULSE 78; RESP 18; TEMP 97.9; O2SAT 96
[2023-12-21] MEDS ORDERED: OLAN5TAB52 PO (16:06)
== END 2023-12-21 17:45 | disposition home or self-care (01) | DRG 885 ==
LOC: B3A 12-15 01:14
PROVIDERS: ADMIT Psychiatry & Neurology Psychiatry; ATTEND Psychiatry & Neurology Psychiatry
DX: F25.9 Schizoaffective disorder, unspecified (principal); F41.9 Anxiety disorder, unspecified; E66.01 Morbid (severe) obesity due to excess calories; E78.5 Hyperlipidemia, unspecified; Z20.822 Contact with and (suspected) exposure to COVID-19; K59.00 Constipation, unspecified; E11.9 Type 2 diabetes mellitus without complications; F22 Delusional disorders; Z68.38 Body mass index [BMI] 38.0-38.9, adult; Z72.0 Tobacco use
CPT/HCPCS: 80048; 80053; 80061; 80307; 81001; 83036; 84436; 84439; 84443; 84702; 84703; 85025; 87077; 87086; 87185; 87186; 90686; 99285; G0480; J1200; J1630; J2060

== ENCOUNTER → 2023-12-14 | Emergency (ER) | payer MEDICARE, MEDICAID ==
[~2023-12-14] VITALS: Ht 170.2 cm; Wt 110.0 kg
[~2023-12-14] MED LIST changes: +FLUO-418 PO; -ZIPR20CA38 PO
[2023-12-14 19:39] VITALS: TEMP 98.8
[2023-12-14 22:59] LABS: COVID AG,FIA SOURCE NASAL SWAB
[2023-12-14 23:01] LABS: ANION GAP 7 mmol/L (8-16); CALCIUM, TOTAL 8.7 mg/dL (8.8-10.5); CARBON DIOXIDE 27 mmol/L (22-29); CHLORIDE 106 mmol/L (98-107); CREATININE 0.74 mg/dL (0.60-1.30); GLOMERULAR FILTR. RATE CALC > 60 mL/min (>60); GLUCOSE,RANDOM 88 mg/dL (70-110); POTASSIUM 4.2 mmol/L (3.5-5.1); SODIUM SERUM 140 mmol/L (136-145); UREA NITROGEN, BLOOD 16 mg/dL (7-18)
[2023-12-14 23:10] LABS: ALCOHOL, BLOOD (SERUM) < 3 mg/dL (0-10)
[2023-12-14 23:11] LABS: BASOPHILS % (AUTO) 1.1 % (0.0-2.0); EOSINOPHILS % (AUTO) 2.2 % (1.0-6.0); HEMATOCRIT 40.5 % (36-46); HEMOGLOBIN 13.1 g/dL (12.0-16.0); LYMPHOCYTES # (AUTO) 3.5 K/uL (1.0-4.8); LYMPHOCYTES % (AUTO) 29.8 % (22.0-44.0); MEAN CORPUSCULAR HEMOGLOBIN 30.3 pg (26.0-34.0); MEAN CORPUSCULAR HGB CONC 32.4 G/dL (31.0-37.0); MEAN CORPUSCULAR VOLUME 93 fL (80-100); MONOCYTES # (AUTO) 0.9 K/uL (0.1-1.0); MONOCYTES % (AUTO) 7.5 % (2.0-9.0); NEUTROPHILS # (AUTO) 6.9 K/uL (1.8-7.7); NEUTROPHILS % (AUTO) 59.4 % (40.0-70.0); PLATELET COUNT (AUTO) 391 K/uL (150-450); RED BLOOD CELL COUNT(AUTO) 4.33 MIL/uL (4.00-5.20); RED CELL DISTRIBUTION WIDTH 13.5 % (11.5-14.5); WHITE BLOOD COUNT (AUTO) 11.6 K/uL (4.5-11.0)
[2023-12-14 23:22] LABS: PH,URINE DRUG SCREEN 6.5 (5.0-8.0)
[2023-12-14 23:29] LABS: AMPHET/METH SCREEN,URINE NEGATIVE (NEGATIVE); BARBITURATE SCREEN, URINE NEGATIVE (NEGATIVE); BENZODIAZEPINES SCREEN,URINE NEGATIVE (NEGATIVE); CANNABINOID SCREEN,URINE NEGATIVE (NEGATIVE); COCAINE SCREEN,URINE NEGATIVE (NEGATIVE); METHADONE SCREEN, URINE NEGATIVE (NEGATIVE); OPIATE SCREEN,URINE NEGATIVE (NEGATIVE); PHENCYCLIDINE SCREEN,URINE NEGATIVE (NEGATIVE)
[2023-12-14 23:29] LABS: SARS-COV2 (COVID) ANTIGEN,FIA Negative (Negative)
[2023-12-14 23:40] LABS: ALCOHOL, URINE DRUG SCREEN NEGATIVE (NEGATIVE)
[2023-12-15 00:05] VITALS: BP 113/73; PULSE 82; RESP 18; O2SAT 100
== END | disposition still patient (30) ==
LOC: EMS 19:01
DX: R45.1 Restlessness and agitation (principal); Z00.8 Encounter for other general examination; F41.9 Anxiety disorder, unspecified; F20.9 Schizophrenia, unspecified; F31.9 Bipolar disorder, unspecified; F17.210 Nicotine dependence, cigarettes, uncomplicated; F15.90 Other stimulant use, unspecified, uncomplicated; Z20.822 Contact with and (suspected) exposure to COVID-19
CPT/HCPCS: 99285; 87426; 80048; 84703; 85025; 36415; 80307; G0480

== ENCOUNTER 2024-08-03 14:41 | Emergency (ER) | payer OTHER ==
[~2024-08-03] VITALS: Ht 170.2 cm; Wt 106.4 kg
[~2024-08-03 14:41] MED LIST changes: +DIVA-112 PO; -FLUO-177 PO; -FLUO-418 PO; +LITH600C5 PO; +LURA40TA2 PO; -OLAN10TA74 PO
[2024-08-03 15:17] VITALS: TEMP 98.1
[2024-08-03 17:17] LABS: BASOPHILS % (AUTO) 0.7 % (0.0-2.0); EOSINOPHILS % (AUTO) 0.5 % (1.0-6.0); HEMOGLOBIN 13.9 g/dL (12.0-16.0); LYMPHOCYTES # (AUTO) 2.9 K/uL (1.0-4.8); LYMPHOCYTES % (AUTO) 21.1 % (22.0-44.0); MEAN CORPUSCULAR HEMOGLOBIN 29.5 pg (26.0-34.0); MEAN CORPUSCULAR HGB CONC 33.2 G/dL (31.0-37.0); MEAN CORPUSCULAR VOLUME 89 fL (80-100); MONOCYTES # (AUTO) 0.6 K/uL (0.1-1.0); MONOCYTES % (AUTO) 4.6 % (2.0-9.0); NEUTROPHILS # (AUTO) 10.2 K/uL (1.8-7.7); NEUTROPHILS % (AUTO) 73.1 % (40.0-70.0); PLATELET COUNT (AUTO) 302 K/uL (150-450); RED BLOOD CELL COUNT(AUTO) 4.72 MIL/uL (4.00-5.20); RED CELL DISTRIBUTION WIDTH 14.4 % (11.5-14.5); WHITE BLOOD COUNT (AUTO) 13.9 K/uL (4.5-11.0)
[2024-08-03 17:20] LABS: ANION GAP 7 mmol/L (8-16); CALCIUM, TOTAL 7.8 mg/dL (8.8-10.5); CARBON DIOXIDE 22 mmol/L (22-29); CHLORIDE 109 mmol/L (98-107); GLOMERULAR FILTR. RATE CALC > 60 mL/min (>60); GLUCOSE,RANDOM 94 mg/dL (70-110); POTASSIUM 3.7 mmol/L (3.5-5.1); SODIUM SERUM 138 mmol/L (136-145); UREA NITROGEN, BLOOD 11 mg/dL (7-18)
[2024-08-03] MEDS: KETOROLAC TROMETHAMINE 30 MG/ML VIAL IVP ONE (18:03)
[2024-08-03 18:15] VITALS: BP 129/81; PULSE 81; RESP 17; O2SAT 98
== END 2024-08-03 18:54 | disposition home or self-care (01) ==
LOC: EMS 15:06
DX: S16.1XXA Strain of muscle, fascia and tendon at neck level, initial encounter (principal); F20.9 Schizophrenia, unspecified; F41.9 Anxiety disorder, unspecified; F15.10 Other stimulant abuse, uncomplicated; F17.210 Nicotine dependence, cigarettes, uncomplicated; V43.52XA Car driver injured in collision with other type car in traffic accident, initial encounter; Y93.89 Activity, other specified; Y92.410 Unspecified street and highway as the place of occurrence of the external cause; Y99.8 Other external cause status
CPT/HCPCS: 99285; 70450; 96374; 80048; 84703; 85025; 36415; 72125; J1885